=== PATIENT | female | born 1935 | race Caucasian/White ===

== ENCOUNTER 2018-09-06 17:50 | Inpatient (IN) ==
[2018-09-06] MEDS ORDERED: Naloxone 0.4 MG/ML INJ IVP PRN (20:51)
[2018-09-06] MEDS ORDERED: Dextrose Gel 15 GM/37.5 ML TUBE PO PRN ×2 (20:58)
[2018-09-06] MEDS ORDERED: *HR* Dextrose 50 % in Water (Syg) 50 ML SYRINGE IVP PRN (20:58)
[2018-09-06] MEDS ORDERED: D5% in Water 1,000 ML IVC PRN (20:58)
--- NOTE | 2018-09-06 21:28 | Internal Med History&Physical ---
Date of Encounter: 09/06/18 Time of Encounter: 20:30 Internal Medicine - H&P: HPI Chief complaint: Fall Admitted From: Home Plans for Post Hospital Care: Home History of present illness: Ms. Lugo is a 82 year old female with past medical history significant for hypertension, hyperlipidemia, thyroid disease, diabetes, and dementia who presents as hospital transfer from [facility] ER following mechanical fall at home after tripping over a step and landing on her left side. Patient is demented at baseline, so most information gathered from chart and family at bedside. Family denies any mentation changes from baseline following fall. Son was at home during fall and was at her side immediately after, doesn't think she hit her head only the left side of her body, denies her loosing consciousness, no anticoagulant use. Family attempted to stand patient up following fall and she was unable to bear weight on left lower extremity. Son also reports mechanical fall outside around three weeks ago with pain to left shoulder that had been improving but is now tender again following todays fall. Sending ER reported EKG as sinus rhythm with left ventricular hypertrophy and no obvious acute ischemic changes. Sending ER obtained xray of left knee, hip, and femur which showed nondisplaced acute intertrochanteric left proximal femur fracture best visualized on the oblique radiographs, no acute abnormality in remainder of the left femur or pelvis, no acute abnormality in the left knee, no left knee osteoarthritis, and osteopenia. Sending ER spoke with senior application programmer Orthopedic Surgeon Dr Gibbs who agreed to see patient in consult. Patient denies pain but does grimace with movement of left lower extremity. Patient currently denies any headache, numbness, tingling, chest pain, shortness of breath, cough, abdominal pain, bowel or bladder changes. Checks blood sugars regularly at home and son reports they have been averaging in the 200's. Follows regularly with PCP. Patient lives with her son and daughter in law. Past Med Surg Social Fam HX - Past Medical History Medical history: dementia, diabetes, hyperlipidemia, hypertension, thyroid disease Psychiatric history: no psych history - Past Surgical History Surgical History: no surgical history - Social History Smoking Status: Never smoker Alcohol use: none Drug use: none Internal Medicine - H&P: Meds Insulin Glargine,Hum.rec.anlog [Smith Kay U-100] 15 unit SQ HS 09/06/18 [History] Levothyroxine [Synthroid] 100 mcg PO DAILY 09/06/18 [History] Lisinopril [Zestril] 20 mg PO DAILY 09/06/18 [History] Simvastatin [Zocor] 20 mg PO HS 09/06/18 [History] metFORMIN [Glucophage] 1,000 mg PO BIDWM 09/06/18 [History] Allergy/AdvReac Type Severity Reaction Status Date / Time No Known Allergies Allergy Verified 09/06/18 15:43 All Systems PM: A 10-system review of systems was performed and is negative for pertinent findin gs except as documented above in the HPI. - Constitutional Vitals: Temp Pulse Resp BP Pulse Ox 99.2 F 79 17 168/66 96 09/06/18 19:31 09/06/18 19:31 09/06/18 19:31 09/06/18 19:31 09/06/18 19:31 Exam: General: Alert. Oriented to self only which is baseline per family secondary to dementia. Skin:Normal color, no rash, no lesions. HEENT:Pupils equal, round and reactive. Cardiovascular:Normal S1 & S2, no rubs, murmurs or gallops. No JVD. Pulse regular. Lungs:Normal breath sounds, no wheezes or crackles. Abdomen:Soft, non-tender, no rigidity. Extremities:No deformity, joint swelling, or clubbing. Non pitting edema noted to bilateral lower extremities. Left lower extremity tender with movement, distal PMS intact. Left shoulder and elbow tender with movement. Neurological:Baseline cognition with dementia unchanged. Decreased movement of left lower extremity due to pain, otherwise normal motor skills. Pulses:Carotid and radial pulses normal +2. Rest of the physical exam is non contributory. - Assessment and Plan (1) Fall Current Visit: Yes Status: Acute Assessment and plan: Mechanical fall at home after tripping on step. Son was at home during fall and was at her side immediately after, doesn't think she hit her head only the left side of her body, denies her loosing consciousness, no anticoagulant use. Unable to bear weight to left lower extremity following fall. Sending ER obtained xray of left knee, hip, and femur which showed nondisplaced acute intertrochanteric left proximal femur fracture, no acute abnormality in remainder of the left femur or pelvis or left knee, no left knee osteoarthritis, and osteopenia. Sending ER spoke with senior application programmer Orthopedic Surgeon Dr Gibbs who agreed to see patient in consult. Consult order placed. Recently had another mechanical fall around three weeks ago without evaluation and had pain to left shoulder and left elbow that was improving until todays fall, xray of left shoulder and left elbow ordered. Fall precautions ordered. NPO at midnight. Pain control with PRN pain medications. SW consult ordered for placement and or home discharge needs. Qualifiers: Encounter type: initial encounter Qualified Code(s): W19.XXXA - Unspecified fall, initial encounter (2) Intertrochanteric fracture of left femur Current Visit: No Status: Acute Assessment and plan: Plan as stated above. Qualifiers: Encounter type: initial encounter Fracture type: closed Fracture alignment: nondisplaced Qualified Code(s): S72.145A - Nondisplaced intertrochanteric fracture of left femur, initial encounter for closed fracture (3) Serum sodium decreased Current Visit: Yes Status: Acute Assessment and plan: Minimally decreased at 135. Repeat labs ordered. (4) Increased white blood cell count Current Visit: Yes Status: Acute Assessment and plan: Slightly increased at 12.9 No signs of infection. Will obtain UA to rule out UTI. Repeat labs ordered. Qualifiers: Leukocytosis type: unspecified Qualified Code(s): D72.829 - Elevated white blood cell count, unspecified (5) Diabetes mellitus Current Visit: Yes Status: Chronic Assessment and plan: Hold home medications. Sliding scale insulin ordered. Accuchecks q6 hours. Qualifiers: Diabetes mellitus type: type 2 Qualified Code(s): E11.9 - Type 2 diabetes mellitus without complications (6) Hypertension Current Visit: Yes Status: Chronic Assessment and plan: Continue home medications once verified. Qualifiers: Hypertension type: unspecified Qualified Code(s): I10 - Essential (primary) hypertension - Time Spent With Patient Total time spent is greater than 50% in coordination of care (as documented) at patient's floor/unit and/or counseling patient:
[2018-09-06] MEDS: Acetaminophen 325 MG TABLET PO PRN (21:56)
[2018-09-07] MEDS: Insulin LISPRO 300 UNITS/3 ML VIAL SQ SCH ×4 (00:17→17:07)
[2018-09-07 01:27] LABS: Clarity,Urine Clear (Clear); Color,Urine Yellow (Yellow)
[2018-09-07 01:28] LABS: Bilirubin,Urine Negative (Negative); Blood,Urine Trace (Negative); Glucose,Urine (UA) >=1000 mg/dL (Normal); Ketones,Urine 40 mg/dL (Negative); Leukocyte Esterase,Urine Negative (Negative); Nitrite,Urine Negative (Negative); PH,Urine 6.5 pH Units (5.0-8.0); Protein,Urine Negative (Neg-Trace); Specific Gravity,Urine > 1.030 (1.010-1.025); Urobilinogen,Urine Normal (Normal)
[2018-09-07 01:32] LABS: Bacteria,Urine None Seen per hpf (None-Few); Hyaline Casts,Urine None Seen per lpf (None-Few); Squamous Epithelial Cell,Urine Many per lpf (None-Few); WBC,Urine 0-3 per hpf (0-3)
[2018-09-07 02:39] LABS: Basophils % 0.3 %; Eosinophils # 0.2 K/mcL (0.0-0.6); Eosinophils % 1.7 %; Hematocrit 39.5 % (35.3-44.9); Hemoglobin 13.2 g/dL (11.5-15.4); Immature Granulocytes % 0.2 % (0-4); Lymphocytes # 1.3 K/mcL (0.6-4.6); Lymphocytes % 14.1 %; Mean Corpuscular HGB Conc 33.4 g/dL (31.6-35.5); Mean Corpuscular Hemoglobin 29.3 pg (28.0-33.3); Mean Corpuscular Volume 87.6 fL (83.0-100.0); Mean Platelet Volume 10.4 fL (9.4-12.4); Monocytes # 0.5 K/mcL (0.0-1.3); Monocytes % 5.8 %; Platelet Count 229 K/mcL (140-400); Red Blood Count 4.51 M/mcL (3.82-4.97); Red Cell Distribution Width 13.8 % (11.5-14.5); Segmented Neutrophils % 77.9 %
[2018-09-07 02:47] LABS: BUN/Creatinine Ratio 15 (6-26); Blood Urea Nitrogen 10 mg/dL (8-23); Calcium 8.5 mg/dL (8.6-10.3); Carbon Dioxide 27 mEq/L (23-29); Chloride 99 mEq/L (98-107); Glucose 236 mg/dL (70-105); Osmolality,Calculated 281 (280-300); Potassium 3.5 mEq/L (3.5-5.1); Sodium 132 mEq/L (136-145); eGFR For African Americans > 60 (> 60); eGFR For Non-African Americans > 60 (> 60)
--- NOTE | 2018-09-07 08:08 | Orthopedics Progress Note ---
Date of Encounter: 09/07/18 Time of Encounter: 08:04 Subjective Interval history: Patient seen status post fall injury to left side, patient has a nondisplaced left clavicle fracture nonoperative nondisplaced left olecranon fracture nonoperative patient has a nondisplaced left intertrochanteric hip fracture which is operative. Patient has pain in all these areas, decreased motion secondary to the pain. Plan is for left hip intramedullary nail fixation We reviewed the risks and benefits as well as recovery. All questions were answered. The patient agreed to this treatment plan and acknowledged an understanding of the treatment plan as described. Objective Vital signs: Vital Signs Temp Pulse Resp BP Pulse Ox 09/07/18 06:52 98.0 F 85 14 159/74 94 09/07/18 03:55 98.1 F 77 15 147/74 94 09/06/18 22:23 99.2 F 83 15 148/76 91 09/06/18 22:06 95 09/06/18 19:31 99.2 F 79 17 168/66 96 Intake and Output 09/06/18 09/07/18 09/07/18 23:59 07:59 15:59 Other: # Urine Diapers 2 2 Weight 55.5 kg 55.5 kg Blood Glucose* 160 Patient Weight 09/07/18 23:59 Weight 55.5 kg - Labs CBC & BMP: 09/07/18 01:49 09/07/18 01:49 Labs: Abnormal lab results Sodium 132 mEq/L (136-145) L 09/07/18 01:49 Glucose 236 mg/dL (70-105) H 09/07/18 01:49 POC Glucose 272 mg/dL (70-99) H 09/07/18 00:15 Calcium 8.5 mg/dL (8.6-10.3) L 09/07/18 01:49 Ur Specific [place] > 1.030 (1.010-1.025) H 09/07/18 01:15 Urine Glucose (UA) >=1000 mg/dL (Normal) H 09/07/18 01:15 Urine Ketones 40 mg/dL (Negative) H 09/07/18 01:15 Urine Blood Trace (Negative) H 09/07/18 01:15 Urine Microscopic RBC 5-15 per hpf (0-3) H 09/07/18 01:15 Ur Squamous Epith Cells Many per lpf (None-Few) H 09/07/18 01:15
--- NOTE | 2018-09-07 10:35 | Internal Med Progress Note ---
Hospitalist Progress Note - Encounter Date of Encounter: 09/07/18 Time of Encounter: 10:30 - Subjective Interval History: Patient seen at bedside. Admitted overnight because of the fall. Denies any acute pain at this point. Denies fever, chills. Patient is scheduled for surgery tomorrow. Patient has been ordered the food for today. No other acute overnight events. - Exam Vitals: Temp Pulse Resp BP Pulse Ox 98.0 F 85 14 159/74 94 09/07/18 06:52 09/07/18 06:52 09/07/18 06:52 09/07/18 06:52 09/07/18 06:52 Exam: General: Alert , oriented to self, no physical distress, able to follow commands. HEENT: No thyromegaly, no lymphadenopathy, no discharge. Respiratory: Normal vesicular breathing, no added sounds, breathing equal in both sides. CVS: Normal heart sounds, no murmurs, no edema. Extremities: No peripheral edema, peripheral pulses intact. Left lower extremity tender with movement, range of motion limited because of the pain, peripheral pulses intact. Left shoulder and elbow are also tender to palpation, range of motion limited because of the pain. Lymph nodes: No lymphadenopathy Gastrointestinal: Soft, nontender abdomen, normal abdominal sounds. No distention noted. Genitourinary: No paravertebral tenderness. Neurological: Alert , oriented to self. No focal deficits. Cranial nerves II- XII intact. - Assessment and Plan (1) Fall Current Visit: Yes Status: Acute Assessment and Plan: Mechanical fall leading to fracture of the left hip. According to the son, patient did not hit her head, CT scan of the head was not done, patient is not on anticoagulation, patient did not lose any consciousness. X-ray of the left hip revealed nondisplaced acute intertrochanteric proximal femur fracture. Ortho on board. They are scheduling the surgery for tomorrow. Patient is pain-free. Fall precautions. -NPOafter midnight. Pain management with pain medications. (2) Intertrochanteric fracture of left femur Current Visit: No Status: Acute Assessment and Plan: -Management plan discussed above. (3) Nondisplaced fracture of shaft of left clavicle Current Visit: Yes Status: Acute Assessment and Plan: Patient also had a mechanical fall a few days back which she hit her shoulder. X-ray was repeated last night in the emergency department which showed acute nondisplaced distal left clavicular fracture, questionable nondisplaced incomplete fracture in the left olecranon process of the ulna. Pain management. Ortho on board, defer management to orho (4) Serum sodium decreased Current Visit: Yes Status: Acute Assessment and Plan: Etiology is unclear. We will repeat the labs again tomorrow. (5) Diabetes mellitus Current Visit: Yes Status: Chronic Assessment and Plan: Patient is on insulin Lantus 15 units at home with metformin. Son at bedside mentions that patient is agreeable dose of insulin Lantus according to her blood glucose levels. Blood glucose levels have been in 200s while she has been in the hospital. Ordered insulin Lantus low-dose sliding scale area Ordered insulin levemir 10 units at bedtime, -Conistent carb diet (6) Hypertension Current Visit: Yes Status: Chronic Assessment and Plan: Continue the patient on lisinopril. (7) DVT prophylaxis Current Visit: Yes Status: Acute Assessment and Plan: -Sub heaprin and compression devices (8) Hypothyroidism Current Visit: Yes Status: Acute Assessment and Plan: -Cont home dose of levothyroxine - Time Spent with Patient Total time spent is greater than 50% in coordination of care (as documented) at patient's floor/unit and/or counseling patient: Internal Medicine: Result - Labs CBC & Chem 7: 09/07/18 01:49 09/07/18 01:49 Labs: Short CBC 09/07/18 Range/Units 01:49 WBC 9.0 (4.3-11.1) K/mcL Hgb 13.2 (11.5-15.4) g/dL Hct 39.5 (35.3-44.9) % Plt Count 229 (140-400) K/mcL Neutrophils # 7.0 (1.6-8.9) K/mcL BMP 09/07/18 01:49 Sodium 132 L Potassium 3.5 Chloride 99 Carbon Dioxide 27 BUN 10 Creatinine 0.65 Glucose 236 H Calcium 8.5 L Urine 09/07/18 Range/Units 01:15 Urine Color Yellow (Yellow) Urine Clarity Clear (Clear) Urine pH 6.5 (5.0-8.0) pH Units Ur Specific [place] > 1.030 H (1.010-1.025) Urine Protein Negative (Neg-Trace) mg/dL Urine Glucose (UA) >=1000 H (Normal) mg/dL - Impressions Impressions Elbow X-Ray 09/06/18 20:56 IMPRESSION: 1. Acute nondisplaced distal left clavicle fracture. 2. Possible nondisplaced incomplete fracture in the left olecranon process of the proximal ulna. Correlate for any focal tenderness. D/ / Ahmet Dorman MD / Ahmet Dorman MD Interpreting Provider: Ahmet Dorman MD Shoulder X-Ray 09/06/18 20:56 IMPRESSION: 1. Acute nondisplaced distal left clavicle fracture. 2. Possible nondisplaced incomplete fracture in the left olecranon process of the proximal ulna. Correlate for any focal tenderness. D/ / Ahmet Dorman MD / Ahmet Dorman MD Interpreting Provider: Ahmet Dorman MD Consult Discharge Plan - Plan Referrals: Mary Nails, MOLDING SUPERVISOR [Primary Care Provider] - (1) Fall Qualifiers: Encounter type: initial encounter Qualified Code(s): W19.XXXA - Unspecified fall, initial encounter (2) Intertrochanteric fracture of left femur Qualifiers: Encounter type: initial encounter Fracture type: closed Fracture alignment: nondisplaced Qualified Code(s): S72.145A - Nondisplaced intertrochanteric fracture of left femur, initial encounter for closed fracture (3) Nondisplaced fracture of shaft of left clavicle Qualifiers: Encounter type: initial encounter Fracture type: closed Qualified Code(s): S42.025A - Nondisplaced fracture of shaft of left clavicle, initial encounter for closed fracture (5) Diabetes mellitus Qualifiers: Diabetes mellitus type: type 2 Qualified Code(s): E11.9 - Type 2 diabetes mellitus without complications (6) Hypertension Qualifiers: Hypertension type: unspecified Qualified Code(s): I10 - Essential (primary) hypertension (8) Hypothyroidism Qualifiers: Hypothyroidism type: unspecified Qualified Code(s): E03.9 - Hypothyroidism, unspecified
[2018-09-07] MEDS: *HR* Heparin 5,000 UNIT/ML VIAL SQ SCH ×2 (11:58→17:08)
[2018-09-07] MEDS: Acetaminophen 325 MG TABLET PO PRN ×2 (14:04→21:53)
--- NOTE | 2018-09-07 17:42 | Anesthesia Evaluation PreOp ---
Date of Encounter: 09/07/18 Time of Encounter: 17:40 - Past History Planned Operation: Left hip TFN Cardiac History: HTN, Hyperlipidemia Pulmonary History: Denies Any Significant HX [employer]ACLE [employer] DEVELOPER History: Other (dementia) Other Medical History: Diabetes Type II, Thyroid (hypo) Anesthesia History: Past Anesthesia (none) Alcohol Use: none Drug use: none Medications and Allergies Insulin Glargine,Hum.rec.anlog [Basaglar Kwikpen U-100] 15 unit SQ HS 09/06/18 [History] Levothyroxine [Synthroid] 100 mcg PO DAILY 09/06/18 [History] Lisinopril [Zestril] 20 mg PO DAILY 09/06/18 [History] Simvastatin [Zocor] 20 mg PO HS 09/06/18 [History] metFORMIN [Glucophage] 1,000 mg PO BIDWM 09/06/18 [History] Allergy/AdvReac Type Severity Reaction Status Date / Time No Known Allergies Allergy Verified 09/06/18 15:43 - Meds/Allergy Pre-op Review Medications Reviewed: Yes Allergies Reviewed: Yes Beta Blockers on Current Med List: No Anesthesia Results - Labs 09/07/18 01:49 09/07/18 01:49 - Imaging EKG: report reviewed (Sinus rhythm Left ventricular hypertrophy Borderline T ab normalities, inferior leads Electronically Signed On 09-07-2018 12:06:02 EDT by Sha Samayoa) Anesthesia Exam Vital Signs/O2 Sat, Most Current Temp Pulse Resp BP Pulse Ox 99.1 F 95 15 146/88 95 09/07/18 15:54 09/07/18 15:54 09/07/18 15:54 09/07/18 15:54 09/07/18 15:54 Weight: 55kg - HEENT Pupil (Motor): Pupils equal, EOMI Mallampati: II Teeth: Edentulous Oral Opening: Greater than 3 - ORACLE R12 DEVELOPER LOC: Confused (oriented to self only, denies having a hip or clavicle fracture and is unaware she is having an operation tomorrow) - Cardiac Rhythm: Regular - Pulmonary Breath Sounds: bilateral Clear Respiratory Effort: Symmetrical Anesthesia Assess/Plan ASA Score: 3 Level of consciousness: Cooperative Anesthetic Plan: General (pt is demented and is oriented to self only, denies having a hip or clavicle fracture and is unaware she is having an operation tomorrow. I attempted to obtain phone consent from son Vega Bowen at [phone] but he did not answer the phone, will need consent in am) Monitoring Plan: Standard Monitors Recovery Plan: PACU
[2018-09-07] MEDS ORDERED: Insulin LISPRO 300 UNITS/3 ML VIAL SQ SCH ×2 (21:00)
[2018-09-07] MEDS ORDERED: Insulin DETEMIR 100 UNIT/ML X5UNITS SQ SCH (21:00)
[2018-09-08] MEDS: *HR* Heparin 5,000 UNIT/ML VIAL SQ SCH ×2 (04:44→18:49)
[2018-09-08 05:15] LABS: Basophils % 0.6 %; Eosinophils # 0.3 K/mcL (0.0-0.6); Eosinophils % 4.5 %; Hematocrit 41.5 % (35.3-44.9); Hemoglobin 14.1 g/dL (11.5-15.4); Immature Granulocytes % 0.4 % (0-4); Lymphocytes # 0.9 K/mcL (0.6-4.6); Lymphocytes % 13.5 %; Mean Corpuscular Hemoglobin 29.3 pg (28.0-33.3); Mean Corpuscular Volume 86.1 fL (83.0-100.0); Mean Platelet Volume 10.6 fL (9.4-12.4); Monocytes # 0.6 K/mcL (0.0-1.3); Monocytes % 9.2 %; Neutrophils # 4.9 K/mcL (1.6-8.9); Platelet Count 214 K/mcL (140-400); Red Blood Count 4.82 M/mcL (3.82-4.97); Red Cell Distribution Width 14.3 % (11.5-14.5); Segmented Neutrophils % 71.8 %; White Blood Count 6.9 K/mcL (4.3-11.1)
[2018-09-08 05:33] LABS: BUN/Creatinine Ratio 26 (6-26); Blood Urea Nitrogen 14 mg/dL (8-23); Calcium 8.7 mg/dL (8.6-10.3); Carbon Dioxide 26 mEq/L (23-29); Chloride 104 mEq/L (98-107); Glucose 271 mg/dL (70-105); Osmolality,Calculated 292 (280-300); Potassium 3.8 mEq/L (3.5-5.1); Sodium 136 mEq/L (136-145); eGFR For African Americans > 60 (> 60); eGFR For Non-African Americans > 60 (> 60)
[2018-09-08] MEDS: Insulin LISPRO 300 UNITS/3 ML VIAL SQ SCH ×3 (08:17→17:35)
[2018-09-08] MEDS ORDERED: Lisinopril 20 MG TABLET PO SCH (09:00)
--- NOTE | 2018-09-08 11:27 | Internal Med Progress Note ---
Hospitalist Progress Note - Encounter Date of Encounter: 09/08/18 Time of Encounter: 08:45 - Subjective Interval History: Seen at bedside, denies fever, chills, rigors, chest pain, SOB, endorses mild pain at the left hip at the site of fracture. No overnight events/ - Exam Vitals: Temp Pulse Resp BP Pulse Ox 98.3 F 85 14 165/71 93 09/08/18 07:51 09/08/18 07:51 09/08/18 07:51 09/08/18 07:51 09/08/18 07:51 Exam: General: Alert , oriented to self, no physical distress, able to follow commands. Respiratory: Normal vesicular breathing, no added sounds, breathing equal in both sides. CVS: Normal heart sounds, no murmurs, no edema. Extremities: No peripheral edema, peripheral pulses intact. Left lower extremity tender with movement, range of motion limited because of the pain, peripheral pulses intact. Left shoulder and elbow are also tender to palpation, range of motion limited because of the pain. Gastrointestinal: Soft, nontender abdomen, normal abdominal sounds. No distention noted. Genitourinary: No paravertebral tenderness. Neurological: Alert , oriented to self. No focal deficits. Cranial nerves II- XII intact. - Assessment and Plan (1) Fall Current Visit: Yes Status: Acute Assessment and Plan: Mechanical fall leading to fracture of the left hip. According to the son, patient did not hit her head, CT scan of the head was not done, patient is not on anticoagulation, patient did not lose any consciousness. X-ray of the left hip revealed nondisplaced acute intertrochanteric proximal femur fracture. Ortho on board, pt planned for the surgery today Patient is pain-free. Fall precautions. Pain management with pain medications. (2) Intertrochanteric fracture of left femur Current Visit: No Status: Acute Assessment and Plan: -Management plan discussed above. -Will need placement most likley following the dischrge (3) Nondisplaced fracture of shaft of left clavicle Current Visit: Yes Status: Acute Assessment and Plan: Patient also had a mechanical fall a few days back which she hit her shoulder. X-ray was repeated last night in the emergency department which showed acute nondisplaced distal left clavicular fracture, questionable nondisplaced incomplete fracture in the left olecranon process of the ulna. Pain management. Ortho on board, defer management to orho (4) Serum sodium decreased Current Visit: Yes Status: Acute Assessment and Plan: Sodium back to normal. -Cont to monitor (5) Diabetes mellitus Current Visit: Yes Status: Chronic Assessment and Plan: Patient is on insulin Lantus 15 units at home with metformin. Son at bedside mentions that patient is agreeable dose of insulin Lantus according to her blood glucose levels. Was given 10 U last nigth of detemir as the pt was supposed to be NPO -Will start from her normal 15 U from tonight. Continue insulin Lantus low-dose sliding scale area -Conistent carb diet (6) Hypertension Current Visit: Yes Status: Chronic Assessment and Plan: Continue the patient on lisinopril. (7) DVT prophylaxis Current Visit: Yes Status: Acute Assessment and Plan: -Sub heaprin and compression devices (8) Hypothyroidism Current Visit: Yes Status: Acute Assessment and Plan: -Cont home dose of levothyroxine - Time Spent with Patient Total time spent is greater than 50% in coordination of care (as documented) at patient's floor/unit and/or counseling patient: Internal Medicine: Result - Labs CBC & Chem 7: 09/08/18 04:45 09/08/18 04:45 Labs: Short CBC 09/08/18 Range/Units 04:45 WBC 6.9 (4.3-11.1) K/mcL Hgb 14.1 (11.5-15.4) g/dL Hct 41.5 (35.3-44.9) % Plt Count 214 (140-400) K/mcL Neutrophils # 4.9 (1.6-8.9) K/mcL BMP 09/08/18 04:45 Sodium 136 Potassium 3.8 Chloride 104 Carbon Dioxide 26 BUN 14 Creatinine 0.54 L Glucose 271 H Calcium 8.7 Consult Discharge Plan - Plan Referrals: Mary Nails, SLAT TWISTER [Primary Care Provider] - (1) Fall Qualifiers: Encounter type: initial encounter Qualified Code(s): W19.XXXA - Unspecified fall, initial encounter (2) Intertrochanteric fracture of left femur Qualifiers: Encounter type: initial encounter Fracture type: closed Fracture alignment: nondisplaced Qualified Code(s): S72.145A - Nondisplaced intertrochanteric fracture of left femur, initial encounter for closed fracture (3) Nondisplaced fracture of shaft of left clavicle Qualifiers: Encounter type: initial encounter Fracture type: closed Qualified Code(s): S42.025A - Nondisplaced fracture of shaft of left clavicle, initial encounter for closed fracture (5) Diabetes mellitus Qualifiers: Diabetes mellitus type: type 2 Qualified Code(s): E11.9 - Type 2 diabetes mellitus without complications (6) Hypertension Qualifiers: Hypertension type: unspecified Qualified Code(s): I10 - Essential (primary) hypertension (8) Hypothyroidism Qualifiers: Hypothyroidism type: unspecified Qualified Code(s): E03.9 - Hypothyroidism, unspecified
--- NOTE | 2018-09-08 12:05 | Orthopedics Progress Note ---
Date of Encounter: 09/08/18 Time of Encounter: 09:15 - Assessment and Plan (1) Fracture of left olecranon process Current Visit: Yes Status: Acute Qualifiers: Encounter type: initial encounter Fracture type: closed Qualified Code(s): S52.022A - Displaced fracture of olecranon process without intraarticular extension of left ulna, initial encounter for closed fracture (2) Nondisplaced fracture of shaft of left clavicle Current Visit: Yes Status: Acute Qualifiers: Encounter type: initial encounter Fracture type: closed Qualified Code(s): S42.025A - Nondisplaced fracture of shaft of left clavicle, initial encounter for closed fracture (3) Intertrochanteric fracture of left femur Current Visit: Yes Status: Acute Qualifiers: Encounter type: initial encounter Fracture type: closed Fracture alignment: nondisplaced Qualified Code(s): S72.145A - Nondisplaced intertrochanteric fracture of left femur, initial encounter for closed fracture (4) Fall Current Visit: Yes Status: Acute Qualifiers: Encounter type: initial encounter Qualified Code(s): W19.XXXA - Unspecified fall, initial encounter Subjective Principal diagnosis: left hip fracture Interval history: Patient seen at beside. Oriented to person only. Patient's son at bedside. Patient's son dissatisfied with patient's care overnight re: bed changes and Cisneros insertion. account manager b2b and charge nurse is aware. Quality evaluation has been started. Patient's son states satisfaction with the above processes. Xrays display nondisplaced left intertrochanteric hip fracture as well as nondisplaced left olecranon and left clavicle fractures On exam patient is pleasantly confused. Patient has removed her blue sling for the LUE and gown. Appears in no distress. No ecchymosis or skin disruption noted LUE or LLE. Patient noted to be moving left arm around - not able to follow commands for keeping LUE still. No calf tenderness b/l LE. Neurovascularly intact all extremtities. Patient was NPO midnight 09/08 Plan for surgery today, 09/[address] Gibbs for Left femur intramedullary nail fixation. Consent was obtained from patient's son 09/07 after thorough discussion to his satisfaction regarding risks, benefits, and anticipated recovery timeline. No hip motion left hip Nonweightbearing to LLE or LUE Please reach out with any questions/concerns regarding patient's orthopedic care. Objective Vital signs: Vital Signs Temp Pulse Resp BP Pulse Ox 09/08/18 07:51 98.3 F 85 14 165/71 93 09/08/18 03:56 97.5 F L 80 16 154/87 92 09/07/18 23:01 98.9 F 99 15 146/83 92 09/07/18 21:13 94 09/07/18 18:52 98.1 F 57 16 110/66 94 09/07/18 15:54 99.1 F 95 15 146/88 95 Intake and Output 09/07/18 09/08/18 09/08/18 23:59 07:59 15:59 Output Total 400 / 400 300 / 300 Balance -400 / -400 -300 / -300 Output: Catheter 400 / 400 300 / 300 Other: Percent of Meal Consumed 100% Weight 55.7 kg Blood Glucose* 348 296 Patient Weight 09/08/18 23:59 Weight 55.7 kg - Labs CBC & BMP: 09/08/18 04:45 09/08/18 04:45 Labs: Abnormal lab results Sodium 132 mEq/L (136-145) L 09/07/18 01:49 Creatinine 0.54 mg/dL (0.60-1.20) L 09/08/18 04:45 Glucose 271 mg/dL (70-105) H 09/08/18 04:45 POC Glucose 348 mg/dL (70-99) H 09/07/18 19:43 Calcium 8.5 mg/dL (8.6-10.3) L 09/07/18 01:49 Ur Specific [place] > 1.030 (1.010-1.025) H 09/07/18 01:15 Urine Glucose (UA) >=1000 mg/dL (Normal) H 09/07/18 01:15 Urine Ketones 40 mg/dL (Negative) H 09/07/18 01:15 Urine Blood Trace (Negative) H 09/07/18 01:15 Urine Microscopic RBC 5-15 per hpf (0-3) H 09/07/18 01:15 Ur Squamous Epith Cells Many per lpf (None-Few) H 09/07/18 01:15 Consult Discharge Plan - Plan Referrals: Mary Nails, QA REVIEWER [Primary Care Provider] -
[2018-09-08] MEDS ORDERED: Lidocaine -MPF 2% 5 ML VIAL ONE (14:33)
[2018-09-08] MEDS ORDERED: *HR* Propofol 200 MG/20 ML VIAL IVP ONE (14:45)
[2018-09-08] MEDS ORDERED: ceFAZolin 2,000 MG in Water for inj. (sterile) 20 ML IVP ONE (14:59)
[2018-09-08] MEDS ORDERED: Propofol 500 MG/50 ML INFUS..BTL ONE (15:36)
--- NOTE | 2018-09-08 16:08 | Anesthesia Procedures ---
Date of Encounter: 09/08/18 Time of Encounter: 15:15 Procedures: Anesthesia - Epidural/Spinal Patient examined: Yes Consent Obtained: Yes Supplemental Oxygen: Mask Supplemental Oxygen Rate (L/min): 10 Site Prep: Aseptic Technique, Sterile prep and drape, 0.5% Chlorhexidine/Alcohol Patient position: right lateral decubitus Local Anesthetic: Lidocaine 1% Interspace Used: L4-L5 Spinal Needle Gauge: 22 Spinal Dose: bupivicaine 0.5% 1.75ml
--- NOTE | 2018-09-08 16:22 | Orthopedic Operative Note ---
Date of procedure: 09/08/18 Pre-op diagnosis: Left hip fracture Post-op diagnosis: same Procedure: Procedure: Left hip open reduction intramedullary nail fixation Estimated blood loss: 50 cc Hardware: Metal: Synthes TFN 10 x 130, 85 mm helical blade, 36 mm distal locking bolt Operative procedure: The patient was brought to the operating room and placed on the operating room table. After general anesthesia was administered the well leg was place in the well leg schneider and the operative leg was placed in the fracture leg schneider. All pressure points were padded appropriately. The operative extremity was prepped and draped in the sterile surgical fashion patient received IV antibiotic prior to skin incision. A standard direct lateral approach was made over the entry point of the greater trochanter, the incision was made through the skin and subcutaneous tissue hemostasis was obtained with Bovie cautery. Using careful sharp dissection the fascia was identified and incised, flouroscopic assistance was used to identify the entry point. The guidepin was placed at the entry point using fluroscopic assistance, it was over reamed with the proximal reamer. The nail was placed through the entry hole, across the fracture site into the distal fragment. the position was confirmed with fluroscopy. A guide pin was placed through the proximal locking guide from the lateral femur through the nail across the fracture site into the femoral head, it was over reamed with the reamer. The helical blade was placed over the guide pin through the nail into the femoral head, locked in place with the proximal locking bolt. Distal locking bolt was placed through the distal locking guide. position of hardware and fracture reduction found to be acceptable with fluroscopic assistance. The wound was irrigated. Fascia was closed with a running #2 PDS suture. The deep tissue was irrigated and closed deep with #1 PDS suture superficially with 0 PDS suture and skin was closed with skin derrick. The patient was placed in a sterile dressing The patient was extubated and transferred to the recovery room in stable condition. Anesthesia: spinal Surgeon: Sridhar Gibbs Was there an assistant plant control operator present: No Estimated blood loss (cc): 50 Condition: stable Disposition: PACU
--- NOTE | 2018-09-08 16:59 | Anesthesia Evaluation Post Op ---
Date of Encounter: 09/08/18 Time of Encounter: 16:59 - Discharge PostOp Status: Transfer Patient to floor (Patient's vital signs have been reviewed. Patient is stable postoperatively and has adequately recovered from anesthesia. Patient is determined to have stable airway patency and respiratory function including respiratory rate and oxygen saturation. Patient has a stable heart rate, blood pressure and adequate hydration. Patients mental status is acceptable. Patients temperature is appropriate. Pain and nausea are adequately controlled)
[2018-09-08] MEDS ORDERED: D5% in Water 1,000 ML IVC PRN (17:33)
[2018-09-08] MEDS ORDERED: Naloxone 0.4 MG/ML INJ IVP PRN (17:33)
[2018-09-08] MEDS ORDERED: Dextrose Gel 15 GM/37.5 ML TUBE PO PRN ×2 (17:33)
[2018-09-08] MEDS ORDERED: *HR* Dextrose 50 % in Water (Syg) 50 ML SYRINGE IVP PRN (17:33)
[2018-09-08] MEDS: Insulin DETEMIR 100 UNIT/ML X5UNITS SQ SCH (20:12)
[2018-09-08] MEDS: *HR* OxyCODONE Immed Rel 5 MG TABLET PO PRN (20:12)
[2018-09-08] MEDS ORDERED: 0.9 % Sodium Chloride 1,000 ML IVC SCH (20:30)
[2018-09-08] MEDS ORDERED: Insulin DETEMIR 100 UNIT/ML X5UNITS SQ SCH (21:00)
[2018-09-09] MEDS: *HR* Heparin 5,000 UNIT/ML VIAL SQ SCH ×2 (06:17→17:05)
[2018-09-09] MEDS: *HR* OxyCODONE Immed Rel 5 MG TABLET PO PRN ×2 (06:17→20:08)
--- NOTE | 2018-09-09 06:32 | Orthopedics Progress Note ---
Date of Encounter: 09/09/18 Time of Encounter: 06:32 Subjective Principal diagnosis: left hip fracture Interval history: Patient was seen this morning doing well without complaints. Afebrile vital signs stable. Operative extremity: Neurovascularly intact Dressing clean dry and intact Calves nontender Assessment and plan: Continue with postoperative care Weightbearing as tolerated left lower extremity. Objective Vital signs: Vital Signs Temp Pulse Resp BP Pulse Ox 09/09/18 04:14 98 F 95 15 162/78 94 09/09/18 00:24 99 F 96 15 159/77 94 09/08/18 20:10 93 09/08/18 20:01 99.5 F 96 15 174/86 93 09/08/18 18:18 98.8 F 81 18 168/84 94 09/08/18 17:12 81 16 134/85 94 09/08/18 17:02 98.8 F 80 14 167/74 93 09/08/18 16:52 79 18 170/82 93 09/08/18 16:42 76 16 166/84 94 09/08/18 16:32 99.9 F H 90 16 151/83 97 09/08/18 15:34 91 15 130/85 97 09/08/18 15:15 89 15 168/108 98 09/08/18 15:05 96 15 169/92 98 09/08/18 11:57 98.0 F 87 14 163/84 92 09/08/18 07:51 98.3 F 85 14 165/71 93 Intake and Output 09/08/18 09/08/18 09/09/18 15:59 23:59 07:59 Intake Total 20 / 20 100 / 100 Output Total 300 / 1100 500 / 1100 650 / 650 Balance -280 / -1080 -500 / -1080 -550 / -550 Intake: IV Fluids 20 / 20 100 / 100 Ancef 2,000 MG In Water for inj 20 / 20 . (sterile) 20 ML @ 200 mls/hr IVP PREOP ONE Rx#:[id number] Ancef 2,000 MG In 0.9 % Sodium 100 / 100 Chloride 100 ML @ 200 mls/hr IVPB Q8HR ZA Rx#:[id number] Oral 0 / 0 Output: Estimated Blood Loss 50 / 50 Catheter 300 / 1050 450 / 1050 650 / 650 Other: Weight 56.1 kg Blood Glucose* 176 338 Patient Weight 09/09/18 23:59 Weight 56.1 kg - Labs CBC & BMP: 09/08/18 04:45 09/08/18 04:45 Labs: Abnormal lab results Sodium 132 mEq/L (136-145) L 09/07/18 01:49 Creatinine 0.54 mg/dL (0.60-1.20) L 09/08/18 04:45 Glucose 271 mg/dL (70-105) H 09/08/18 04:45 POC Glucose 176 mg/dL (70-99) H 09/08/18 12:01 Calcium 8.5 mg/dL (8.6-10.3) L 09/07/18 01:49 Ur Specific [place] > 1.030 (1.010-1.025) H 09/07/18 01:15 Urine Glucose (UA) >=1000 mg/dL (Normal) H 09/07/18 01:15 Urine Ketones 40 mg/dL (Negative) H 09/07/18 01:15 Urine Blood Trace (Negative) H 09/07/18 01:15 Urine Microscopic RBC 5-15 per hpf (0-3) H 09/07/18 01:15 Ur Squamous Epith Cells Many per lpf (None-Few) H 09/07/18 01:15 Consult Discharge Plan - Plan Referrals: Mary Nails, TELEPHONE MAINTAINER [Primary Care Provider] -
[2018-09-09 07:12] LABS: Basophils % 0.4 %; Eosinophils # 0.3 K/mcL (0.0-0.6); Eosinophils % 3.8 %; Hematocrit 40.5 % (35.3-44.9); Hemoglobin 13.4 g/dL (11.5-15.4); Immature Granulocytes % 0.4 % (0-4); Lymphocytes # 1.2 K/mcL (0.6-4.6); Lymphocytes % 15.1 %; Mean Corpuscular HGB Conc 33.1 g/dL (31.6-35.5); Mean Corpuscular Hemoglobin 28.9 pg (28.0-33.3); Mean Corpuscular Volume 87.5 fL (83.0-100.0); Mean Platelet Volume 10.4 fL (9.4-12.4); Monocytes # 0.9 K/mcL (0.0-1.3); Monocytes % 12.2 %; Neutrophils # 5.2 K/mcL (1.6-8.9); Platelet Count 179 K/mcL (140-400); Red Blood Count 4.63 M/mcL (3.82-4.97); Red Cell Distribution Width 14.5 % (11.5-14.5); Segmented Neutrophils % 68.1 %; White Blood Count 7.6 K/mcL (4.3-11.1)
[2018-09-09 07:31] LABS: BUN/Creatinine Ratio 29 (6-26); Blood Urea Nitrogen 14 mg/dL (8-23); Calcium 8.8 mg/dL (8.6-10.3); Carbon Dioxide 24 mEq/L (23-29); Chloride 103 mEq/L (98-107); Glucose 225 mg/dL (70-105); Osmolality,Calculated 290 (280-300); Potassium 3.8 mEq/L (3.5-5.1); Sodium 136 mEq/L (136-145); eGFR For African Americans > 60 (> 60); eGFR For Non-African Americans > 60 (> 60)
[2018-09-09] MEDS: Insulin LISPRO 300 UNITS/3 ML VIAL SQ SCH ×3 (08:24→17:06)
[2018-09-09] MEDS: Lisinopril 20 MG TABLET PO SCH (08:25)
--- NOTE | 2018-09-09 12:23 | Internal Med Progress Note ---
Hospitalist Progress Note - Encounter Date of Encounter: 09/09/18 Time of Encounter: 10:00 - Subjective Interval History: Seen at bedside. Got the surgery yesterday, is doing well, no acute complaints. Pain is well controlled. no overnight events. - Exam Vitals: Temp Pulse Resp BP Pulse Ox 98 F 87 166 159/78 96 09/09/18 06:30 09/09/18 06:30 09/09/18 06:30 09/09/18 06:30 09/09/18 06:30 Exam: General: Alert , oriented to self, no physical distress, able to follow commands. Respiratory: Normal vesicular breathing, no added sounds, breathing equal in both sides. CVS: Normal heart sounds, no murmurs, no edema. Extremities: No peripheral edema, peripheral pulses intact. Left lower extremity tender with movement, range of motion limited because of the pain, peripheral pulses intact. Left shoulder and elbow are also tender to palpation, range of motion limited because of the pain. Gastrointestinal: Soft, nontender abdomen, normal abdominal sounds. No distention noted. Genitourinary: No paravertebral tenderness. Neurological: Alert , oriented to self. No focal deficits. Cranial nerves II- XII intact. - Assessment and Plan (1) Fall Current Visit: Yes Status: Acute Assessment and Plan: Mechanical fall leading to fracture of the left hip. According to the son, patient did not hit her head, CT scan of the head was not done, patient is not on anticoagulation, patient did not lose any consciousness. X-ray of the left hip revealed nondisplaced acute intertrochanteric proximal femur fracture. Ortho on board, pt got Left hip open reduction intramedullary nail fixation yesteday Patient is pain-free. Fall precautions. Pain management with pain medications. (2) Intertrochanteric fracture of left femur Current Visit: Yes Status: Acute Assessment and Plan: -Management plan discussed above. -Will need placement most likley following the dischrge (3) Nondisplaced fracture of shaft of left clavicle Current Visit: Yes Status: Acute Assessment and Plan: Patient also had a mechanical fall a few days back which she hit her shoulder. X-ray was repeated last night in the emergency department which showed acute nondisplaced distal left clavicular fracture, questionable nondisplaced incomp lete fracture in the left olecranon process of the ulna. Pain management. Ortho on board, defer management to orho (4) Serum sodium decreased Current Visit: Yes Status: Acute Assessment and Plan: Sodium back to normal. -Cont to monitor (5) Diabetes mellitus Current Visit: Yes Status: Chronic Assessment and Plan: Patient is on insulin Lantus 15 units at home with metformin. Son at bedside mentions that patient is agreeable dose of insulin Lantus according to her blood glucose levels. Is back to the home dsoe with goon control Continue insulin Lantus low-dose sliding scale area -Conistent carb diet (6) Hypertension Current Visit: Yes Status: Chronic Assessment and Plan: Continue the patient on lisinopril. (7) DVT prophylaxis Current Visit: Yes Status: Acute Assessment and Plan: -Sub heaprin and compression devices (8) Hypothyroidism Current Visit: Yes Status: Acute Assessment and Plan: -Cont home dose of levothyroxine - Time Spent with Patient Total time spent is greater than 50% in coordination of care (as documented) at patient's floor/unit and/or counseling patient: Internal Medicine: Result - Labs CBC & Chem 7: 09/09/18 06:46 09/09/18 06:46 Labs: Short CBC 09/09/18 Range/Units 06:46 WBC 7.6 (4.3-11.1) K/mcL Hgb 13.4 (11.5-15.4) g/dL Hct 40.5 (35.3-44.9) % Plt Count 179 (140-400) K/mcL Neutrophils # 5.2 (1.6-8.9) K/mcL BMP 09/09/18 06:46 Sodium 136 Potassium 3.8 Chloride 103 Carbon Dioxide 24 BUN 14 Creatinine 0.49 L Glucose 225 H Calcium 8.8 - Impressions Impressions Hip X-Ray 09/08/18 15:17 IMPRESSION: Please see operative report for further details. D/ / Hemanth Monzon MD / Hemanth Monzon MD Interpreting Provider: Hemanth Monzon MD Fluoroscopy 09/08/18 15:54 IMPRESSION: Please see operative report for further details. D/ / Hemanth Monzon MD / Hemanth Monzon MD Interpreting Provider: Hemanth Monzon MD Hip X-Ray 09/08/18 15:54 IMPRESSION: Please see operative report for further details. D/ / Hemanth Monzon MD / Hemanth Monzon MD Interpreting Provider: Hemanth Monzon MD Consult Discharge Plan - Plan Referrals: Mary Nails, LINEN SUPERVISOR [Primary Care Provider] - (1) Fall Qualifiers: Encounter type: initial encounter Qualified Code(s): W19.XXXA - Unspecified fall, initial encounter (2) Intertrochanteric fracture of left femur Qualifiers: Encounter type: initial encounter Fracture type: closed Fracture alignment: nondisplaced Qualified Code(s): S72.145A - Nondisplaced intertrochanteric fracture of left femur, initial encounter for closed fracture (3) Nondisplaced fracture of shaft of left clavicle Qualifiers: Encounter type: initial encounter Fracture type: closed Qualified Code(s): S42.025A - Nondisplaced fracture of shaft of left clavicle, initial encounter for closed fracture (5) Diabetes mellitus Qualifiers: Diabetes mellitus type: type 2 Qualified Code(s): E11.9 - Type 2 diabetes mellitus without complications (6) Hypertension Qualifiers: Hypertension type: essential hypertension Qualified Code(s): I10 - Essential (primary) hypertension (8) Hypothyroidism Qualifiers: Hypothyroidism type: unspecified Qualified Code(s): E03.9 - Hypothyroidism, unspecified
[2018-09-09] MEDS: Insulin DETEMIR 100 UNIT/ML X5UNITS SQ SCH (20:46)
[2018-09-10] MEDS: *HR* Heparin 5,000 UNIT/ML VIAL SQ SCH ×2 (05:58→17:01)
[2018-09-10] MEDS: *HR* OxyCODONE/APAP 5/325 TABLET PO PRN (05:59)
[2018-09-10 07:07] LABS: Basophils % 0.6 %; Eosinophils # 0.4 K/mcL (0.0-0.6); Eosinophils % 5.2 %; Hematocrit 37.9 % (35.3-44.9); Hemoglobin 12.6 g/dL (11.5-15.4); Immature Granulocytes % 0.4 % (0-4); Lymphocytes # 1.4 K/mcL (0.6-4.6); Lymphocytes % 20.4 %; Mean Corpuscular HGB Conc 33.2 g/dL (31.6-35.5); Mean Corpuscular Volume 87.3 fL (83.0-100.0); Mean Platelet Volume 10.7 fL (9.4-12.4); Monocytes # 1.1 K/mcL (0.0-1.3); Neutrophils # 4.1 K/mcL (1.6-8.9); Platelet Count 175 K/mcL (140-400); Red Blood Count 4.34 M/mcL (3.82-4.97); Red Cell Distribution Width 14.4 % (11.5-14.5); Segmented Neutrophils % 58.4 %; White Blood Count 7.1 K/mcL (4.3-11.1)
--- NOTE | 2018-09-10 07:26 | Orthopedics Progress Note ---
Date of Encounter: 09/10/18 Time of Encounter: 07:26 Subjective Principal diagnosis: left hip fracture Interval history: Patient was seen this morning doing well without complaints. Afebrile vital signs stable. Operative extremity: Neurovascularly intact Dressing clean dry and intact Calves nontender Assessment and plan: Continue with postoperative care Weightbearing as tolerated left lower extremity. will discharge when stable Objective Vital signs: Vital Signs Temp Pulse Resp BP Pulse Ox 09/10/18 06:42 98.7 F 88 16 167/84 97 09/10/18 04:17 97.7 F 72 18 132/77 96 09/10/18 00:31 97.7 F 92 19 150/82 92 09/09/18 21:55 134/70 09/09/18 20:08 96 09/09/18 16:41 98.2 F 78 16 165/67 96 09/09/18 10:00 97.8 F 83 16 151/83 96 Intake and Output 09/09/18 09/09/18 09/10/18 15:59 23:59 07:59 Other: # Urine Diapers 2 Weight 51 kg Blood Glucose* 179 299 Patient Weight 09/10/18 23:59 Weight 51 kg - Labs CBC & BMP: 09/10/18 06:55 09/09/18 06:46 Labs: Abnormal lab results Sodium 132 mEq/L (136-145) L 09/07/18 01:49 Creatinine 0.49 mg/dL (0.60-1.20) L 09/09/18 06:46 BUN/Creatinine Ratio 29 (6-26) H 09/09/18 06:46 Glucose 225 mg/dL (70-105) H 09/09/18 06:46 POC Glucose 299 mg/dL (70-99) H 09/09/18 20:46 Calcium 8.5 mg/dL (8.6-10.3) L 09/07/18 01:49 Ur Specific [place] > 1.030 (1.010-1.025) H 09/07/18 01:15 Urine Glucose (UA) >=1000 mg/dL (Normal) H 09/07/18 01:15 Urine Ketones 40 mg/dL (Negative) H 09/07/18 01:15 Urine Blood Trace (Negative) H 09/07/18 01:15 Urine Microscopic RBC 5-15 per hpf (0-3) H 09/07/18 01:15 Ur Squamous Epith Cells Many per lpf (None-Few) H 09/07/18 01:15 Consult Discharge Plan - Plan Referrals: Mary Nails, NOXIOUS WEEDS AND PEST INSPECTOR [Primary Care Provider] -
[2018-09-10] MEDS ORDERED: Ringers Solution, Lactated 1,000 ML IVC SCH (08:00)
[2018-09-10] MEDS: Insulin LISPRO 300 UNITS/3 ML VIAL SQ SCH ×3 (09:06→17:01)
--- NOTE | 2018-09-10 11:10 | Internal Med Progress Note ---
Hospitalist Progress Note - Encounter Date of Encounter: 09/10/18 Time of Encounter: 09:00 - Subjective Interval History: Seen at bedside.Deneis fever, chills, rigors, no other acute complaitns.No overngith events. Denies any pain at this point - Exam Vitals: Temp Pulse Resp BP Pulse Ox 98.7 F 88 16 167/84 97 09/10/18 06:42 09/10/18 06:42 09/10/18 06:42 09/10/18 06:42 09/10/18 06:42 Exam: General: Alert , oriented to self, seems like her bsaeline, no physical distress, able to follow commands. Respiratory: Normal vesicular breathing, no added sounds, breathing equal in both sides. CVS: Normal heart sounds, no murmurs, no edema. Extremities: No peripheral edema, peripheral pulses intact. Left lower extremity tender with movement, range of motion limited because of the pain, peripheral pulses intact. Left shoulder and elbow are also tender to palpation, range of motion limited because of the pain. Gastrointestinal: Soft, nontender abdomen, normal abdominal sounds. No distention noted. Genitourinary: No paravertebral tenderness. Neurological: Alert , oriented to self. No focal deficits. Cranial nerves II- XII intact. - Assessment and Plan (1) Fall Current Visit: Yes Status: Acute Assessment and Plan: Mechanical fall leading to fracture of the left hip. X-ray of the left hip revealed nondisplaced acute intertrochanteric proximal femur fracture. Ortho on board, pt got Left hip open reduction intramedullary nail fixation. has been doing okay post operatively. Patient is pain-free. Fall precautions. Pain management with pain medications. (2) Intertrochanteric fracture of left femur Current Visit: Yes Status: Acute Assessment and Plan: -Management plan discussed above. -Will need SNF palcement. (3) Nondisplaced fracture of shaft of left clavicle Current Visit: Yes Status: Acute Assessment and Plan: Patient also had a mechanical fall a few days back which she hit her shoulder. X-ray was repeated last night in the emergency department which showed acute nondisplaced distal left clavicular fracture, questionable nondisplaced incomplete fracture in the left olecranon process of the ulna. Pain management. Ortho on board, defer management to orho (4) Serum sodium decreased Current Visit: Yes Status: Acute Assessment and Plan: Sodium back to normal. -Cont to monitor (5) Diabetes mellitus Current Visit: Yes Status: Chronic Assessment and Plan: Patient is on insulin Lantus 15 units at home with metformin. Son at bedside mentions that patient is agreeable dose of insulin Lantus according to her blood glucose levels. Is back to the home dose Increase nsulin Lantus moderate-dose sliding scale as the levels are elevated -Conistent carb diet (6) Hypertension Current Visit: Yes Status: Chronic Assessment and Plan: Continue the patient on lisinopril. (7) DVT prophylaxis Current Visit: Yes Status: Acute Assessment and Plan: -Sub heaprin and compression devices (8) Hypothyroidism Current Visit: Yes Status: Acute Assessment and Plan: -Cont home dose of levothyroxine - Time Spent with Patient Total time spent is greater than 50% in coordination of care (as documented) at patient's floor/unit and/or counseling patient: Internal Medicine: Result - Labs CBC & Chem 7: 09/10/18 06:55 09/09/18 06:46 Labs: Short CBC 09/10/18 Range/Units 06:55 WBC 7.1 (4.3-11.1) K/mcL Hgb 12.6 (11.5-15.4) g/dL Hct 37.9 (35.3-44.9) % Plt Count 175 (140-400) K/mcL Neutrophils # 4.1 (1.6-8.9) K/mcL Consult Discharge Plan - Plan Referrals: Mary Nails, PRESCRIPTION BENEFIT SPECIALIST [Primary Care Provider] - (1) Fall Qualifiers: Encounter type: initial encounter Qualified Code(s): W19.XXXA - Unspecified f all, initial encounter (2) Intertrochanteric fracture of left femur Qualifiers: Encounter type: initial encounter Fracture type: closed Fracture alignment: nondisplaced Qualified Code(s): S72.145A - Nondisplaced intertrochanteric fracture of left femur, initial encounter for closed fracture (3) Nondisplaced fracture of shaft of left clavicle Qualifiers: Encounter type: initial encounter Fracture type: closed Qualified Code(s): S42.025A - Nondisplaced fracture of shaft of left clavicle, initial encounter for closed fracture (5) Diabetes mellitus Qualifiers: Diabetes mellitus type: type 2 Qualified Code(s): E11.9 - Type 2 diabetes mellitus without complications (6) Hypertension Qualifiers: Hypertension type: essential hypertension Qualified Code(s): I10 - Essential (primary) hypertension (8) Hypothyroidism Qualifiers: Hypothyroidism type: unspecified Qualified Code(s): E03.9 - Hypothyroidism, unspecified
[2018-09-10] MEDS: Lisinopril 20 MG TABLET PO SCH (11:44)
[2018-09-10] MEDS: traMADol 50 MG TABLET PO PRN (15:18)
[2018-09-10] MEDS: Acetaminophen 325 MG TABLET PO PRN (19:53)
[2018-09-10] MEDS: Insulin DETEMIR 100 UNIT/ML X5UNITS SQ SCH (21:59)
[2018-09-11] MEDS: *HR* Heparin 5,000 UNIT/ML VIAL SQ SCH ×2 (05:04→18:30)
[2018-09-11] MEDS: Acetaminophen 325 MG TABLET PO PRN (05:04)
--- NOTE | 2018-09-11 06:42 | Orthopedics Progress Note ---
Date of Encounter: 09/11/18 Time of Encounter: 06:41 Subjective Principal diagnosis: left hip fracture Interval history: Patient was seen this morning doing well without complaints. Afebrile vital signs stable. Operative extremity: Neurovascularly intact Dressing clean dry and intact Calves nontender Assessment and plan: Continue with postoperative care Weightbearing as tolerated left lower extremity. Stable for discharge Objective Vital signs: Vital Signs Temp Pulse Resp BP Pulse Ox 09/11/18 06:35 97.7 F 80 16 173/79 96 09/11/18 04:37 97.9 F 78 18 175/80 95 09/10/18 23:50 98.2 F 77 14 154/73 96 09/10/18 22:01 97.5 F L 87 16 156/80 97 09/10/18 19:53 97 09/10/18 16:51 97.9 F 88 16 149/99 94 09/10/18 11:37 98.1 F 82 14 159/78 93 09/10/18 06:42 98.7 F 88 16 167/84 97 Intake and Output 09/10/18 09/10/18 09/11/18 15:59 23:59 07:59 Intake Total 0 / 0 0 / 0 Balance 0 / 0 0 / 0 Intake: Oral 0 / 0 0 / 0 Other: # Voids 0 # Urine Diapers 1 2 Weight 53.8 kg Blood Glucose* 183 264 Patient Weight 09/11/18 23:59 Weight 53.8 kg - Labs CBC & BMP: 09/10/18 06:55 09/09/18 06:46 Labs: Abnormal lab results Sodium 132 mEq/L (136-145) L 09/07/18 01:49 Creatinine 0.49 mg/dL (0.60-1.20) L 09/09/18 06:46 BUN/Creatinine Ratio 29 (6-26) H 09/09/18 06:46 Glucose 225 mg/dL (70-105) H 09/09/18 06:46 POC Glucose 183 mg/dL (70-99) H 09/10/18 11:34 Calcium 8.5 mg/dL (8.6-10.3) L 09/07/18 01:49 Ur Specific [place] > 1.030 (1.010-1.025) H 09/07/18 01:15 Urine Glucose (UA) >=1000 mg/dL (Normal) H 09/07/18 01:15 Urine Ketones 40 mg/dL (Negative) H 09/07/18 01:15 Urine Blood Trace (Negative) H 09/07/18 01:15 Urine Microscopic RBC 5-15 per hpf (0-3) H 09/07/18 01:15 Ur Squamous Epith Cells Many per lpf (None-Few) H 09/07/18 01:15 Consult Discharge Plan - Plan Referrals: Mary Nails, TEST ENGINE MECHANIC [Primary Care Provider] -
[2018-09-11] MEDS: Insulin LISPRO 300 UNITS/3 ML VIAL SQ SCH ×3 (08:31→18:30)
[2018-09-11] MEDS: Lisinopril 20 MG TABLET PO SCH (08:39)
[2018-09-11] MEDS: traMADol 50 MG TABLET PO PRN (08:39)
--- NOTE | 2018-09-11 13:37 | Internal Med Progress Note ---
Hospitalist Progress Note - Encounter Date of Encounter: 09/11/18 Time of Encounter: 10:00 - Subjective Interval History: Seen at [facility],no acute complaints today. IS looking calm,comfortable, sitting on chair, plaeasant. Denies any pain. NO overngith events. - Exam Vitals: Temp Pulse Resp BP Pulse Ox 98.7 F 96 18 137/84 96 09/11/18 11:00 09/11/18 11:00 09/11/18 11:00 09/11/18 11:00 09/11/18 11:00 Exam: General: Alert , oriented to self, seems like her bsaeline, no physical distress, able to follow commands. Respiratory: Normal vesicular breathing, no added sounds, breathing equal in both sides. CVS: Normal heart sounds, no murmurs, no edema. Extremities: No peripheral edema, peripheral pulses intact. Left lower extremi ty tender with movement, range of motion limited because of the pain, peripheral pulses intact. Left shoulder and elbow are also tender to palpation, range of motion limited because of the pain. Gastrointestinal: Soft, nontender abdomen, normal abdominal sounds. No distention noted. Genitourinary: No paravertebral tenderness. Neurological: Alert , oriented to self. No focal deficits. Cranial nerves II- XII intact. - Assessment and Plan (1) Fall Current Visit: Yes Status: Acute Assessment and Plan: Mechanical fall leading to fracture of the left hip. X-ray of the left hip revealed nondisplaced acute intertrochanteric proximal femur fracture. Ortho on board, pt got Left hip open reduction intramedullary nail fixation. has been doing okay post operatively. Patient is pain-free. Fall precautions. Pain management with pain medications. (2) Intertrochanteric fracture of left femur Current Visit: Yes Status: Acute Assessment and Plan: -Management plan discussed above. -Will need SNF palcement. (3) Nondisplaced fracture of shaft of left clavicle Current Visit: Yes Status: Acute Assessment and Plan: Patient also had a mechanical fall a few days back which she hit her shoulder. X-ray was repeated last night in the emergency department which showed acute nondisplaced distal left clavicular fracture, questionable nondisplaced incomplete fracture in the left olecranon process of the ulna. Pain management. Ortho on board, defer management to orho (4) Diabetes mellitus Current Visit: Yes Status: Chronic Assessment and Plan: Patient is on insulin Lantus 15 units at home with metformin. Son at bedside mentions that patient is agreeable dose of insulin Lantus according to her blood glucose levels. Is back to the home dose continue MDSS (5) Hypertension Current Visit: Yes Status: Chronic Assessment and Plan: Continue the patient on lisinopril. (6) DVT prophylaxis Current Visit: Yes Status: Acute Assessment and Plan: -Sub heaprin and compression devices (7) Hypothyroidism Current Visit: Yes Status: Acute Assessment and Plan: -Cont home dose of levothyroxine - Time Spent with Patient Total time spent is greater than 50% in coordination of care (as documented) at patient's floor/unit and/or counseling patient: Internal Medicine: Result - Labs CBC & Chem 7: 09/10/18 06:55 09/09/18 06:46 Consult Discharge Plan - Plan Referrals: Mary Nails, [employer] PRODUCT DEVELOPMENT MANAGER [Primary Care Provider] - ____ (1) Fall Qualifiers: Encounter type: initial encounter Qualified Code(s): W19.XXXA - Unspecified fall, initial encounter (2) Intertrochanteric fracture of left femur Qualifiers: Encounter type: initial encounter Fracture type: closed Fracture alignment: nondisplaced Qualified Code(s): S72.145A - Nondisplaced intertrochanteric fracture of left femur, initial encounter for closed fracture (3) Nondisplaced fracture of shaft of left clavicle Qualifiers: Encounter type: initial encounter Fracture type: closed Qualified Code(s): S42.025A - Nondisplaced fracture of shaft of left clavicle, initial encounter for closed fracture (4) Diabetes mellitus Qualifiers: Diabetes mellitus type: type 2 Qualified Code(s): E11.9 - Type 2 diabetes mellitus without complications (5) Hypertension Qualifiers: Hypertension type: essential hypertension Qualified Code(s): I10 - Essential (primary) hypertension (7) Hypothyroidism Qualifiers: Hypothyroidism type: unspecified Qualified Code(s): E03.9 - Hypothyroidism, unspecified
[2018-09-11] MEDS: *HR* OxyCODONE Immed Rel 5 MG TABLET PO PRN (14:50)
--- NOTE | 2018-09-11 16:18 | Event Note ---
Date of Encounter: 09/11/18 Time of Encounter: 09:00 POD#3 s/p Left hip open reduction intramedullary nail fixation [left hip fracture] 09/08/18 PCR - Patient seen at bedside. Patient's son at bedside. A&Ox1 to person Dressing and incision c/d/i No calf tenderness, erythema, or warmth. Neurovascularly intact b/l LE. B/L UE nontender with full motion - patient not able to follow restriction of limited motion re: clavicle and olecranon fractures. Patient refusing to wear blue sling. Labwork, vitals, and medications reviewed. Pain control: Adequate Participating in therapy. All questions and concerns addressed. Educated on use of incentive spirometer, ambulation, and hydration. Patient educated on post-operative restrictions and care. Addressed: Discussed with patient and her son restrictions including leaving dressing in place until follow up as scheduled. Protected WBAT D/C plan: ECF - awaiting acceptance/auth
[2018-09-11] MEDS: Insulin DETEMIR 100 UNIT/ML X5UNITS SQ SCH (22:15)
[2018-09-12] MEDS: *HR* OxyCODONE Immed Rel 5 MG TABLET PO PRN ×2 (03:05→07:33)
[2018-09-12] MEDS: *HR* Heparin 5,000 UNIT/ML VIAL SQ SCH ×2 (06:37→16:55)
[2018-09-12 07:04] LABS: Basophils % 0.6 %; Eosinophils # 0.3 K/mcL (0.0-0.6); Eosinophils % 4.4 %; Hematocrit 36.6 % (35.3-44.9); Hemoglobin 12.1 g/dL (11.5-15.4); Immature Granulocytes % 0.3 % (0-4); Lymphocytes # 1.8 K/mcL (0.6-4.6); Lymphocytes % 26.6 %; Mean Corpuscular HGB Conc 33.1 g/dL (31.6-35.5); Mean Corpuscular Hemoglobin 29.5 pg (28.0-33.3); Mean Corpuscular Volume 89.3 fL (83.0-100.0); Mean Platelet Volume 10.7 fL (9.4-12.4); Monocytes # 0.9 K/mcL (0.0-1.3); Monocytes % 12.9 %; Neutrophils # 3.7 K/mcL (1.6-8.9); Platelet Count 203 K/mcL (140-400); Red Cell Distribution Width 14.5 % (11.5-14.5); Segmented Neutrophils % 55.2 %; White Blood Count 6.8 K/mcL (4.3-11.1)
[2018-09-12] MEDS: Insulin LISPRO 300 UNITS/3 ML VIAL SQ SCH ×4 (07:34→16:57)
[2018-09-12] MEDS: Lisinopril 20 MG TABLET PO SCH (07:34)
[2018-09-12] MEDS: Sennosides 8.6 MG TABLET PO SCH ×2 (11:18→20:43)
--- NOTE | 2018-09-12 16:12 | Internal Med Progress Note ---
Hospitalist Progress Note - Encounter Date of Encounter: 09/12/18 Time of Encounter: 09:00 - Subjective Interval History: Patient seen at bedside. Denies any pain at the surgical site. Denies fever, chills. Hemodynamically stable. No acute events overnight. Patient's son was at bedside, discussed the plan with the son. - Exam Vitals: Temp Pulse Resp BP Pulse Ox 98.0 F 92 16 166/79 95 09/12/18 16:05 09/12/18 16:05 09/12/18 16:05 09/12/18 16:05 09/12/18 16:05 Exam: General: Alert , oriented to self, seems like her bsaeline, no physical distress, able to follow commands. Respiratory: Normal vesicular breathing, no added sounds, breathing equal in both sides. CVS: Normal heart sounds, no murmurs, no edema. Extremities: No peripheral edema, peripheral pulses intact. Left lower extremity tender with movement, range of motion limited because of the pain, peripheral pulses intact. Gastrointestinal: Soft, nontender abdomen, normal abdominal sounds. No distention noted. Genitourinary: No paravertebral tenderness. Neurological: Alert , oriented to self. No focal deficits. Cranial nerves II- XII intact. - Assessment and Plan (1) Fall Current Visit: Yes Status: Acute Assessment and Plan: Mechanical fall leading to fracture of the left hip. X-ray of the left hip revealed nondisplaced acute intertrochanteric proximal femur fracture. Got Left hip open reduction intramedullary nail fixation. has been doing okay post operatively. Patient is pain-free. Fall precautions. Pain management with pain medications. (2) Intertrochanteric fracture of left femur Current Visit: Yes Status: Acute Assessment and Plan: -Management plan discussed above. -Will need SNF palcement. (3) Nondisplaced fracture of shaft of left clavicle Current Visit: Yes Status: Acute Assessment and Plan: Patient also had a mechanical fall a few days back which she hit her shoulder. X-ray was repeated last night in the emergency department which showed acute nondisplaced distal left clavicular fracture, questionable nondisplaced incomplete fracture in the left olecranon process of the ulna. Pain management. Ortho on board, defer management to orho (4) Diabetes mellitus Current Visit: Yes Status: Chronic Assessment and Plan: Bg levels elevated -Continue levemir at the current dose -Add lispro with meals 5 U TID with meals -COntinue LDSS (5) Hypertension Current Visit: Yes Status: Chronic Assessment and Plan: BP slightly high -Continue the patient on lisinopril. (6) DVT prophylaxis Current Visit: Yes Status: Acute Assessment and Plan: -Sub heaprin and compression devices (7) Hypothyroidism Current Visit: Yes Status: Acute Assessment and Plan: -Cont home dose of levothyroxine - Time Spent with Patient Total time spent is greater than 50% in coordination of care (as documented) at patient's floor/unit and/or counseling patient: Internal Medicine: Result - Labs CBC & Chem 7: 09/12/18 06:39 09/09/18 06:46 Labs: Short CBC 09/12/18 Range/Units 06:39 WBC 6.8 (4.3-11.1) K/mcL Hgb 12.1 (11.5-15.4) g/dL Hct 36.6 (35.3-44.9) % Plt Count 203 (140-400) K/mcL Neutrophils # 3.7 (1.6-8.9) K/mcL Consult Discharge Plan - Plan Referrals: Mary Nails, TUBE INSPECTOR [Primary Care Provider] - (1) Fall Qualifiers: Encounter type: initial encounter Qualified Code(s): W19.XXXA - Unspecified fall, initial encounter (2) Intertrochanteric fracture of left femur Qualifiers: Encounter type: initial encounter Fracture type: closed Fracture alignment: nondisplaced Qualified Code(s): S72.145A - Nondisplaced intertrochanteric fracture of left femur, initial encounter for closed fracture (3) Nondisplaced fracture of shaft of left clavicle Qualifiers: Encounter type: initial encounter Fracture type: closed Qualified Code(s): S42.025A - Nondisplaced fracture of shaft of left clavicle, initial encounter for closed fracture (4) Diabetes mellitus Qualifiers: Diabetes mellitus type: type 2 Qualified Code(s): E11.9 - Type 2 diabetes mellitus without complications (5) Hypertension Qualifiers: Hypertension type: essential hypertension Qualified Code(s): I10 - Essential (primary) hypertension (7) Hypothyroidism Qualifiers: Hypothyroidism type: unspecified Qualified Code(s): E03.9 - Hypothyroidism, unspecified
[2018-09-12] MEDS: traMADol 50 MG TABLET PO PRN (19:01)
[2018-09-12] MEDS: Insulin DETEMIR 100 UNIT/ML X5UNITS SQ SCH (20:43)
[2018-09-12] MEDS: *HR* OxyCODONE/APAP 5/325 TABLET PO PRN (23:10)
[2018-09-13 04:19] LABS: Basophils # 0.1 K/mcL (0.0-0.2); Eosinophils # 0.3 K/mcL (0.0-0.6); Eosinophils % 4.6 %; Hematocrit 37.5 % (35.3-44.9); Hemoglobin 12.2 g/dL (11.5-15.4); Immature Granulocytes % 0.5 % (0-4); Lymphocytes % 33.3 %; Mean Corpuscular HGB Conc 32.5 g/dL (31.6-35.5); Mean Corpuscular Hemoglobin 29.3 pg (28.0-33.3); Mean Corpuscular Volume 89.9 fL (83.0-100.0); Mean Platelet Volume 10.8 fL (9.4-12.4); Monocytes # 0.8 K/mcL (0.0-1.3); Monocytes % 13.7 %; Neutrophils # 2.8 K/mcL (1.6-8.9); Platelet Count 217 K/mcL (140-400); Red Blood Count 4.17 M/mcL (3.82-4.97); Red Cell Distribution Width 14.5 % (11.5-14.5); Segmented Neutrophils % 46.9 %; White Blood Count 6.1 K/mcL (4.3-11.1)
[2018-09-13] MEDS: *HR* Heparin 5,000 UNIT/ML VIAL SQ SCH (05:18)
[2018-09-13] MEDS: traMADol 50 MG TABLET PO PRN (06:48)
[2018-09-13] MEDS: Sennosides 8.6 MG TABLET PO SCH (08:35)
[2018-09-13] MEDS: Insulin LISPRO 300 UNITS/3 ML VIAL SQ SCH ×4 (08:35→12:37)
[2018-09-13] MEDS: Lisinopril 20 MG TABLET PO SCH (08:35)
[2018-09-13] MEDS: Acetaminophen 325 MG TABLET PO PRN (09:44)
[2018-09-13 11:02] VITALS: BP 127/74
--- NOTE | 2018-09-13 12:47 | Discharge Summary ---
- NOTES TO OUTPATIENT PROVIDER Notes to Outpatient Provider: Patient is 81-year-old female who presented to the hospital after the mechanical fall and found to have left hip fracture. Patient had a surgery done on her left hip. And patient was sent to [facility] facility. Follow-up with patient after discharge from [facility] facility. Estimated PT Needs at Discharge: SNF/ECF Date of Encounter: 09/13/18 Time of Encounter: 12:36 - Discharge Diagnosis (1) Intertrochanteric fracture of left femur Priority: Primary Status: Chronic Qualifiers: Encounter type: initial encounter Fracture type: closed Fracture alignment: nondisplaced Qualified Code(s): S72.145A - Nondisplaced intertrochanteric fracture of left femur, initial encounter for closed fracture (2) Fall Priority: Secondary Status: Acute Qualifiers: Encounter type: initial encounter Qualified Code(s): W19.XXXA - Unspecified fall, initial encounter (3) Diabetes mellitus Priority: Secondary Status: Chronic Qualifiers: Diabetes mellitus type: type 2 Qualified Code(s): E11.9 - Type 2 diabetes mellitus without complications (4) Hypertension Priority: Secondary Status: Chronic Qualifiers: Hypertension type: essential hypertension Qualified Code(s): I10 - Essential (primary) hypertension (5) DVT prophylaxis Priority: Secondary Status: Chronic (6) Hypothyroidism Priority: Secondary Status: Chronic Qualifiers: Hypothyroidism type: unspecified Qualified Code(s): E03.9 - Hypothyroidism, unspecified (7) Nondisplaced fracture of shaft of left clavicle Priority: Secondary Status: Chronic Qualifiers: Encounter type: initial encounter Fracture type: closed Qualified Code(s): S42.025A - Nondisplaced fracture of shaft of left clavicle, initial encounter for closed fracture Hospital course: Ms. Lugo is a 82 year old female presented to the hospital status post mechanical fall. With complaint of left hip pain. On hospital course patient was found to have left hip fracture on the left colon process. Patient was taken by orthopedic surgery and was operated on. Patient is doing much better. Hospital course was without any event/complication. Patient is going to [facility] facility. Patient will need one month of aspirin 162 mg twice a day. She will follow-up with orthopedic surgery. Patient is to follow-up with primary care provider after getting discharge from [facility] facility. Discharge discussed with: patient, family, nurse - Time Spent with Patient Total time spent providing and/or coordinating discharge services: 35 Time spent: Greater than 30 minutes - Discharge Medications Prescriptions: New Aspirin 162 mg PO BID #60 tab.chew Insulin LISPRO [HumaLOG] 6 units SQ TIDAC vial Insulin DETEMIR [Levemir] 15 unit SQ HS [id number] OxyCODONE/APAP 5/325 [Percocet 5/325 MG] 1 each PO Q8HR PRN 7 Days #21 tablet PRN Reason: Moderate Pain 4-6 Acetaminophen [Tylenol] 650 mg PO Q6HR PRN tablet PRN Reason: Pain Continued Metformin HCl [Glucophage] 1,000 mg PO BIDWM Simvastatin [Zocor] 20 mg PO HS Lisinopril [Zestril] 20 mg PO HS Levothyroxine [Synthroid] 100 mcg PO QAM Discontinued Insulin Glargine,Hum.rec.anlog [Basaglar Kwikpen U-100] 14 - 16 unit SQ HS Home Medications: Levothyroxine [Synthroid] 100 mcg PO QAM 09/06/18 [History] Lisinopril [Zestril] 20 mg PO HS 09/06/18 [History] Simvastatin [Zocor] 20 mg PO HS 09/06/18 [History] Metformin HCl [Glucophage] 1,000 mg PO BIDWM 09/07/18 [History] Acetaminophen [Tylenol] 650 mg PO Q6HR PRN tablet 09/13/18 [Rx] Aspirin 162 mg PO BID #60 tab.chew 09/13/18 [Rx] Insulin DETEMIR [Levemir] 15 unit SQ HS [id number] 09/13/18 [Rx] Insulin LISPRO [HumaLOG] 6 units SQ TIDAC vial 09/13/18 [Rx] OxyCODONE/APAP 5/325 [Percocet 5/325 MG] 1 each PO Q8HR PRN 7 Days #21 tablet 09/13/18 [Rx] Allergies/Adverse Reactions: Allergy/AdvReac Type Severity Reaction Status Date / Time No Known Allergies Allergy Verified 09/07/18 21:13 Date of admission: 09/07/18 15:03 Primary care physician: Mary Nails CNP Consults: 09/06/18 20:54 Consult to Orthopedic Surgery [CONS] Routine Consulting Provider: [facility] Reason for Consult: Presents for mechanical fall from [facility] ER. New nondisplaced acute intertrochanteric left proximal femur fracture. Sending ER consulted Dr Gibbs who agreed to see in consult. Call Completed: Yes 09/06/18 21:41 Consult to Apprentice Painter Hand [CONS] Routine Reason for SW Consult: May need placement or assistance with home discharge needs. 09/08/18 17:33 Consult to Occupational Therapy [CONS] Routine Comment: Evaluate, develop and implement POC Reason for Consult: post hip surgery Does patient have active BEDREST order?: No Is patient medically & hemodynamically stable?: Yes Patient assessed for mobility or mobilized this visit?: Yes Consult to Orthopedic Navigator [CONS] [CONS] Routine Consult to Physical Therapy [CONS] Routine Comment: Evaluate, develop and implement POC Reason for Consult: post hip surgery Does patient have active BEDREST order?: No Is patient medically & hemodynamically stable?: Yes Patient assessed for mobility or mobilized this visit?: Yes Consult to Apprentice Painter Hand [CONS] Routine Reason for SW Consult: post -op hip fracture RT Post Op Consult [CONS] Routine Discharging clinician: Kyree Ordoñez Anticipated date of discharge: 09/13/18 - Constitutional Vitals: Temp Pulse Resp BP Pulse Ox 97.7 F 89 16 127/74 96 09/13/18 11:01 09/13/18 11:01 09/13/18 11:01 09/13/18 11:01 09/13/18 11:01 General appearance: Present: cooperative, A&O X 3 Exam: General: Alert , oriented X 3 Respiratory: Normal vesicular breathing, no added sounds, breathing equal in both sides. CVS: Normal heart sounds, no murmurs, no edema. Extremities: No peripheral edema, peripheral pulses intact. Left lower extremity tender with movement, range of motion limited because of the pain, peripheral pulses intact. Gastrointestinal: Soft, nontender abdomen, normal abdominal sounds. No distention noted. Genitourinary: No paravertebral tenderness. Neurological: Alert , oriented to self. No focal deficits. Cranial nerves II- XII intact. - Patient Status Disposition: Transfer SNF Condition: Good Functional capacity at discharge: uses cane/walker Overall status at discharge: patient is progressing back to baseline - Discharge Instructions Follow Up With: Mary Nails, WOOD FLOOR LAYER [Primary Care Provider] - Sridhar Gibbs MD [Partnered Physician] - Additional Instructions: Discharge Instructions: Please call [facility] ([phone]), your Primary Care Physician, or report to the Emergency Room if you have any of the following symptoms: Nausea, vomiting, fever greater that 101.5, swelling, chest pain, shortness of breath, increased pain/redness/drainage/odor for your incision site, numbness/tingling, or any other concerning symptoms. ACTIVITY:Weight-bearing as tolerated for 8 weeks with hip dislocation precautions that physical therapy taught you. Sling to RALPH You may progress as tolerated under the guidance of your physical therapist. You do not need to sleep with a pillow between your legs. You can also seep on the operative side or on your stomach. Incentive Spirometer 10 times an hour. MEDICATIONS: Upon discharge resume your home medications. Take all the medications as prescribed. Take a stool softener if taking narcotic pain medications. Stool softeners are only effective if you drink enough fluids. Drink 6-8 glass of water or fluids a day, unless this is not allowed for another health problem. Despite using stool softeners, if you haven't had a bowel movement in 3 days, please switch to a gentle laxative. Gentle laxatives are sold over the counter. You should have a bowel movement within 24 hours, if not call the office. You will be discharged from the hospital with a prescription for pain medication. You are encouraged to decrease the use of narcotic pain medication as tolerated. Should you require a refill, please call the office. [facility] prescribes narcotic pain medication for only 4-6 weeks after surgery. If you require pain medication beyond this time period, you may be referred to your Primary Care Physician or to the Pain Clinic for further evaluation. Plan ahead for refills on pain medication as many narcotics either need to be picked up at the office or mailed. It is best to call 48-72 hours in advance of needing a prescription refill so you don't run out of medication. To help control the post-operative pain, you may take NSAIDs (Aleve,Advil, Motrin, ibuprofen, naprosyn) or Tylenol as prescribed on the bottle in addition to the pain medication. ANTICOAGULATION (blood thinners): Continue your Aspirin, Lovenox or Coumadin as prescribed to help prevent a blood clot in the leg or in the lungs. As long as your incision remains dry and you tolerate the NSAIDs (Aleve, Advil, Motrin, Ibuprofen, Naprosyn), it is OK to use the NSAIDS while you are taking your anticoagulation medication. Should your incision start to drain, stop the NSAID and contact our office. Common symptoms of blood clot in the legs include: localized pain, swelling, calf tenderness, redness or discoloration of the skin. Blood clot in the lung symptoms include: shortness of breath, rapid pulse, sweating, and chest pain that worsens with deep breathing, coughing up blood, lightheadedness, feelings of anxiety. If you experience any of these symptoms notify your physician immediately, go to the emergency room, or if having trouble breathing, call 911. WOUND CARE: Leave the dressing on for 7 to 10days. You may change the dressing if it is saturated greater than 50%. Do not get the dressing wet at anytime. Wash your hands with antibacterial soap, rinse and dry prior to any wound care. If you have derrick the visiting nurse or rehab facility can remove the stapes 10-14 days after surgery and place steri-strips across the wound. Leave the steri-strips in place until they fall off on their own. You may let water from the shower run on top of the steri-strips. If you do not have a visiting nurse or rehab facility, you will need to return to the office at 10-14 days for the derrick to be removed. If you have itching or redness around the dressing call the office. FOLLOW-UP: Please follow up with your surgeon in the orthopedic clinic in 6 weeks from the day of surgery. If you have derrick that need to be removed, you will need to come back to the office in 10-14 days from the day of surgery. - Diet and Activity Activity: ambulate only with your walker Diet: advance to your usual diet
--- NOTE | 2018-09-13 12:53 | Physician Discharge Referral ---
ExtendedCare Referral Info Transfer To: SNF Provider in Charge after Transfer: PCP Institutional Level of Care: Skilled - Diagnosis (1) Intertrochanteric fracture of left femur Priority: Primary Status: Acute (2) Fall Priority: Secondary Status: Acute (3) Diabetes mellitus Priority: Secondary Status: Chronic (4) Hypertension Priority: Secondary Status: Chronic (5) DVT prophylaxis Priority: Secondary Status: Chronic (6) Hypothyroidism Priority: Secondary Status: Chronic (7) Nondisplaced fracture of shaft of left clavicle Priority: Secondary Status: Chronic Expected Duration of Placement: 30 days Prognosis: Good - Transfer Medications Prescriptions: Aspirin 162 mg PO BID #60 tab.chew OxyCODONE/APAP 5/325 [Percocet 5/325 MG] 1 each PO Q8HR PRN 7 Days #21 tablet PRN Reason: Moderate Pain 4-6 Home Medications: Levothyroxine [Synthroid] 100 mcg PO QAM 09/06/18 [History] Lisinopril [Zestril] 20 mg PO HS 09/06/18 [History] Simvastatin [Zocor] 20 mg PO HS 09/06/18 [History] Metformin HCl [Glucophage] 1,000 mg PO BIDWM 09/07/18 [History] Acetaminophen [Tylenol] 650 mg PO Q6HR PRN tablet 09/13/18 [Rx] Aspirin 162 mg PO BID #60 tab.chew 09/13/18 [Rx] Insulin DETEMIR [Levemir] 15 unit SQ HS [id number] 09/13/18 [Rx] Insulin LISPRO [HumaLOG] 6 units SQ TIDAC vial 09/13/18 [Rx] OxyCODONE/APAP 5/325 [Percocet 5/325 MG] 1 each PO Q8HR PRN 7 Days #21 tablet 09/13/18 [Rx] Allergies/Adverse Reactions: Allergy/AdvReac Type Severity Reaction Status Date / Time No Known Allergies Allergy Verified 09/07/18 21:13 - Respiratory Orders Smoking Cessation: Smoking cessation has been advised. For more information, call the [place] Tobacco Quit Line at 9-089-YWWM-NOW. - Ancillary Orders May use pressure relief devices daily prn - Rehabiliation Orders Rehab Orders: Evaluation for Physical Therapy, Evaluation for Occupational Therapy - Diet Orders Regular, Cardiac CERTIFICATION: I certify that the transfer of the above named patient to an Extended Care Facility is necessary for the continuing treatment of the diagnosis listed. The above information is true and accurate reflection of patient's current condition. Confidential - Redisclosure prohibited without a patient's written consent.
== END 2018-09-13 14:45 | DRG 482 ==
LOC: 3NENU → SUATTDRO 19:12
PROVIDERS: ADMIT Internal Medicine; ATTEND Family Medicine